=== PATIENT | male | born 1945 | race Caucasian/White ===

== ENCOUNTER 2020-07-12 08:47 | Emergency (ER) | payer MEDICARE, MEDICAID ==
[2020-07-12] MEDS ORDERED: EPINEPHrine 1:10,000 1 MG/10 ML Syringe IVPUSH ONE (09:00)
--- NOTE | 2020-07-12 09:12 | EDM.PDOC ---
ED HPI GENERAL MEDICAL PROBLEM - General Chief Complaint: CPR in Progress Stated Complaint: cpr in progress Time Seen by Provider: 07/12/20 08:47 Source of Information: Reports: EMS History Limitations: Reports: Other (coding) - History of Present Illness INITIAL COMMENTS - FREE TEXT/NARRATIVE: Pt brought in by [facility] with CPR in progress. Was unresponsive when they arrived but he did have a pulse. Was hooked up to AED and no shock advised. They were not able to contracting support specialist ZULEMA devise. CPR continued enroute. Son reported to EMS that he has been having episodes where he would become unresponsive over the last 3 days but refused to come in for medical evaluation. This AM he states that he passed out and was unable to arouse him and then called 911. Son was not present in the ER. When he arrived in ER he did not have any spontaneous respirations. He did have sinus madhu on the monitor but no pulse was felt on the carotid or the femoral sites. PEA identified. ZULEMA attached. CPR resumed and epi given IV. Pt was intubated by DEPUTY CHIEF EXECUTIVE and position checked. [facility] was connected during code and advised with treatment. I did talk to the son via phone and he voices understanding that CPR was not effective and agreed to stopping. Please see notes from [facility] for times of treatments. Time of 09:03 - Related Data Allergies Allergy/AdvReac Type Severity Reaction Status Date / Time Unable to Assess Allergy Unverified 07/12/20 09:33 Home Meds: Home Meds . [Unable to Verify Home Med List] 07/12/20 [History] ED ROS GENERAL - Review of Systems Review Of Systems: Unable To Obtain Reason Not Obtained: pt was coding and no family available. ED EXAM, CPR - Physical Exam Exam: See Below Limited By: Unresponsive, Other (code in progress) Cardiovascular: Absent Heart Sounds, Pulse with Compression, CPR In Progress Course - Orders/Labs/Meds Labs: Laboratory Tests 07/12/20 Range/Units 09:17 SARS CoV-2 RNA Rapid CARTER Negative (NEGATIVE) Meds: Medications Discontinued Medications Generic Name Dose Route Start Last Admin Trade Name Freq PRN Reason Stop Dose Admin Epinephrine HCl 1 mg 07/12/20 09:00 07/12/20 09:00 Epinephrine 1:10,000 IVPUSH 07/12/20 09:01 1 mg ONETIME ONE Administration Departure - Departure Time of Disposition: 09:05 Disposition: 20 Clinical Impression: Cardiac arrest - Discharge Information *PRESCRIPTION DRUG MONITORING PROGRAM REVIEWED*: Not Applicable *COPY OF PRESCRIPTION DRUG MONITORING REPORT IN PATIENT ROYAL: Not Applicable Referrals: PCP,Unknown [Ordering Only Provider] - Forms: ED Department Discharge - Problem List & Annotations (1) Cardiac arrest SNOMED Code(s): 090430707 Code(s): I46.9 - CARDIAC ARREST, CAUSE UNSPECIFIED Status: Acute - Problem List Review Problem List Initiated/Reviewed/Updated: Yes
== END 2020-07-12 12:35 | disposition expired ==
LOC: CC.ED 08:47
DX: I46.9 Cardiac arrest, cause unspecified (principal); Z20.828 Contact with and (suspected) exposure to other viral communicable diseases
CPT/HCPCS: 31500; 92950; 96374; 99285-25; J0171; U0002